=== PATIENT | female | born 1945 | race Caucasian/White ===

== ENCOUNTER 2017-02-04 11:24 | Day surgery (SDC) | payer BC ==
[~2017-02-04 11:24] MED LIST: RINGER'S SOLUTION,LACTATED 1,000 ML IV PRN
[2017-02-04] MEDS ORDERED: RINGER'S SOLUTION,LACTATED 1,000 ML IV ONE ×2 (11:57→12:15)
[2017-02-04] MEDS ORDERED: BUPIVACAINE HCL/EPINEPHRINE 50 ML VIAL IJ ONE ×2 (12:32)
[2017-02-04] MEDS ORDERED: RINGER'S SOLUTION,LACTATED 1,000 ML IV PRN (12:56)
[2017-02-04 14:32] VITALS: BP 138/65
--- NOTE | 2017-02-09 09:40 | OR ---
Operative Report - Dictated Report Narrative: OPERATIVE REPORT DATE OF OPERATION: 02/04/2017 PREOPERATIVE DIAGNOSIS: Unused buried infusion port POSTOPERATIVE DIAGNOSIS: Same OPERATION: Removal of left subclavian vein buried infusion port SURGEON: Adore Del Real MD ANESTHESIA: MAC/local Kyle Abdul CRNA INDICATIONS FOR PROCEDURE: The patient is a 71-year-old female who had placement of a buried infusion port in May for chemotherapy. She has completed that and desires port removal. FINDINGS: Successful removal of the buried infusion port NARRATIVE OF PROCEDURE: The patient was identified preoperatively, the surgical site was marked, and prior to the administration of MAC anesthetic a multidisciplinary timeout was observed. The patient was placed supine and the left chest prepped with Betadine solution and the area around the port isolated with 4 sterile towels. The remainder the patient was covered with a sterile disposable drape. The area was infiltrated with 0.5% Marcaine with epinephrine. The previous port pocket incision was opened sharply down to the fibrous capsule around the port. The port was then freed and removed intact with the tubing. The area was hemostatic. The port pocket was then closed with interrupted sutures of 3-0 chromic. The skin was secured with a running subcuticular suture of 4-0 Vicryl. The operative site was washed and dried. A dressing of Dermabond and Mepilex border was applied. The operative procedure was terminated at this point. The patient tolerated the procedure well without complication. All counts were correct. There was no measurable blood loss. No specimen was submitted. The patient was transferred back to the ambulatory surgery area awake and in stable condition. Reviewed and electronically signed
== END 2017-02-04 11:25 | disposition home or self-care (01) ==
LOC: AMB 11:24
PROVIDERS: ATTEND Surgery
PROC: 0JPT3XZ Removal of Tunneled Vascular Access Device from Trunk Subcutaneous Tissue and Fascia, Percutaneous Approach (ICD-10-PCS; principal; 2017-02-04 11:30)
DX: Z45.2 Encounter for adjustment and management of vascular access device (principal); J45.30 Mild persistent asthma, uncomplicated; Z68.38 Body mass index [BMI] 38.0-38.9, adult

== ENCOUNTER 2019-12-21 06:24 | Inpatient (IN) ==
[~2019-12-21 06:24] MED LIST changes: +MORPHINE SULFATE 15 MG TABLET.SA PO PRN; -RINGER'S SOLUTION,LACTATED 1,000 ML IV PRN; +ROPIVACAINE HCL/PF 100 MG, EPINEPHrine 0.2 MG, KETOROLAC TROMETHAMINE 30 MG in NORMAL S... IJ PRN; +TRANEXAMIC ACID 1,000 MG in NORMAL SALINE 100 ML IV PRN; +ceFAZolin SODIUM 1 GM VIAL IV PRN
[2019-12-21] MEDS ORDERED: ISOPROPYL ALCOHOL 480 APPL BTL MC ONE (06:31)
[2019-12-21] MEDS ORDERED: ceFAZolin SODIUM 1 GM VIAL ONE (06:31)
[2019-12-21] MEDS: RINGER'S SOLUTION,LACTATED 1,000 ML IV PRN ×3 (07:14→10:05)
--- NOTE | 2019-12-21 07:36 | ANES ---
Anesthesia Pre Procedure Eval Vitals/Labs: Last Vital Signs Temp 36.8 C 12/21/19 06:37 Pulse 66 12/21/19 06:37 Resp 18 12/21/19 06:37 BP 138/60 12/21/19 06:37 Pulse Ox 96 12/21/19 06:37 HOME MEDICATIONS Nebivolol HCl [Bystolic] 5 mg PO DAILY 05/29/16 [Last Taken 12/21/19 05:30] Cyanocobalamin [Vitamin B-12] 1,000 mcg PO DAILY 02/01/17 [Last Taken 08/04/17] Gabapentin [Neurontin] 100 mg PO BID 07/22/17 [Last Taken 08/04/17] cholecalciferol (vitamin D3) 50 mcg (2,000 unit) capsule 2,000 unit PO DAILY 04/14/19 [Last Taken Unknown] amlodipine 5 mg tablet 2.5 mg PO TID #14 tab 11/10/19 [Last Taken 12/21/19 05:30] ezetimibe 10 mg tablet 10 mg PO DAILY tab 11/10/19 [Last Taken Unknown] levothyroxine 50 mcg tablet 50 mcg PO DAILY tab 11/10/19 [Last Taken 12/21/19 05:30] Allergies/Adverse Reactions: Allergies Allergy/AdvReac Type Severity Reaction Status Date / Time ragweed pollen Allergy asthma Verified 12/21/19 06:48 symptoms epinephrine AdvReac Intermediate HTN Verified 12/21/19 06:48 NSAIDS (Non-Steroidal AdvReac Intermediate Other Verified 12/21/19 06:48 Anti-Inflamma calamine AdvReac Mild RASH Verified 12/21/19 06:48 codeine AdvReac Mild WEAK, Verified 12/21/19 06:48 PALE, NAUSEA doxycycline AdvReac Mild RASH, Verified 12/21/19 06:48 VOMITING imipramine AdvReac Mild RASH, Verified 12/21/19 06:48 SWELLING lisinopril AdvReac Mild SHORT OF Verified 12/21/19 06:48 BREATH losartan AdvReac Mild STOMACH Verified 12/21/19 06:48 PAIN naproxen [From Naprosyn] AdvReac Mild Itching Verified 12/21/19 06:48 - Planned Procedure Planned Procedure: left total knee arthroplasty Medication List Reviewed:: Yes Allergies Verified: Yes Medical History (Last Reviewed 12/21/19 @ 07:33 by Blaise Dumont CRNA) Asthma, mild persistent Onset Date: Unknown Back pain Onset Date: 2004 Thoracic back pain radiating around right ribs [facility] Feb 15 2012 4:20PM: Thoracic spine pain, previous MRI showed possible cystic formation Degenerative joint disease of knee Onset Date: 02/25/13 Iron deficiency anemia due to chronic blood loss Onset Date: Unknown Malignant neoplasm of sigmoid colon Onset Date: 03/2016 adenomcarcinoma Positive Lyme disease serology has been negative since Surgical History (Last Reviewed 12/21/19 @ 07:33 by Blaise Dumont CRNA) Colostomy in place Onset Date: 04/02/16 [facility]-end descending colostomy/Alexandra pouch Encounter for intravenous line placement Onset Date: 06/18/16 insertion of buried infusion port- [facility]-left subclavian removal -[facility]- 02/04/17 History of arthroscopic surgery of shoulder Onset Date: 1999 Fractured humerus, adhesive capsulitis History of section Onset Date: 06/04/82 History of cholecystectomy Onset Date: 2005 History of elbow surgery Onset Date: 1988 Right tennis elbow History of exploratory laparotomy Onset Date: 04/02/16 [facility]-ischemic portion of the colon, a mass with perforation. Sigmoid resection with colostomy History of hysterectomy Onset Date: 1993 [facility] WITH [facility] S [facility] History of sinus surgery Onset Date: 1997 Thornwaldt cyst History of surgery on right wrist Onset Date: 2000 Fracture radias /External fixation and pinning History of surgery on wrist Onset Date: Unknown Family History (Last Reviewed 12/21/19 @ 07:33 by Blaise Dumont CRNA) Father , age 58 Cancer prostate Mother , age 72 Multiple myeloma with amyloidosis Chronic mental illness Brother , age 72 Cancer bladder Aunt Rheumatoid arthritis - Family Anesthesia History Family History:: no untoward family reactions to anesthesia, no familial bleeding tendencies, no family history of clotting disorders, no family history of premature - Airway/Neck/Teeth Within Normal Limits:: Yes Neck Exam: full range of motion Mallampatti Score: 3 Thyromental (T-M) distance: > 6 cm Mandibulo Hyoid distance: > 3 cm - Respiratory Respiratory History: asthma Respiratory Physical: lungs clear Smoking Status: Never smoker Sleep Apnea currently treated: No Sleep Apnea by current assessment: No - Cardiovascular Cardiac History: hypertension Tolerate Activity: Fair Heart Sounds: S1 & S2, Regular - Gastrointestinal NPO since: 2399 - Anesthesia Assessment and Plan ASA Class: PS, III Anesthesia Type Plan: Block - adductor canal block for post op pain relief, Spinal
[2019-12-21] MEDS ORDERED: PROPOFOL VIAL IV ONE (07:42)
[2019-12-21] MEDS ORDERED: MIDAZOLAM HCL/PF 5 MG/ML VIAL ONE (07:42)
[2019-12-21] MEDS ORDERED: BUPIVACAINE HCL/EPINEPHRINE/PF 30 ML VIAL IJ ONE (07:42)
[2019-12-21] MEDS ORDERED: ZOLPIDEM TARTRATE 5 MG TABLET PO PRN (09:52)
[2019-12-21] MEDS ORDERED: diphenhydrAMINE HCL 50 MG/ML VIAL IV PRN (09:52)
[2019-12-21] MEDS ORDERED: MORPHINE SULFATE 4 MG/ML SYRG IV PRN (09:52)
[2019-12-21] MEDS ORDERED: ACETAMINOPHEN 500 MG TABLET PO PRN (09:52)
[2019-12-21] MEDS ORDERED: ONDANSETRON HCL/PF 2 MG/ML VIAL IV PRN (09:52)
[2019-12-21] MEDS ORDERED: MAG HYDROX/ALUMINUM HYD/SIMETH 30 ML UDC PO PRN (09:52)
[2019-12-21] MEDS ORDERED: MAGNESIUM HYDROXIDE 30 ML UDC PO PRN (09:52)
[2019-12-21] MEDS ORDERED: DEXTROSE 5%-LACTATED RINGERS 1,000 ML IV PRN ×2 (09:52→14:23)
--- NOTE | 2019-12-21 09:59 | OR ---
Operative Report - Dictated Report Narrative: Date: 12/21/2019 Preoperative diagnosis: Left knee degenerative joint disease. Postoperative diagnosis: Left knee degenerative joint disease. Procedure: Left total knee arthroplasty. Surgeon: Frank Torres M.D. Rn Orthopaedics: Remberto Hobson PA-C (provided and essential set of skilled, educated hands that assisted with transfer, positioning, prepping, draping, manipulation, retraction, placement of jigs, injection, insertion of implants, irrigation, closure wounds, and dressings all of which could not be performed by the available surgical crew) Anesthesia: Spinal with regional block and local periarticular joint injection. Complications: None Specimens: Bone. Estimated blood loss: Minimal. Tourniquet time: 85 Minutes at 300 millimeters of mercury. Retained implants: Depuy Attune size 6 narrow left lugged cemented posterior stabilized femoral component. Size 5 fixed-bearing cemented tibial platform. 6 by 5 millimeter posterior stabilized cross-linked tibial insert. 35 millimeter medialized patella button. Indications: Mrs. Howe is a 74-year-old female who has had longstanding left knee pain and arthrosis. This patient was followed in my clinic for period of time with significant complaints of left knee pain consistent with arthritic changes. She had failed conservative measures including, but not limited to, activity modification, passage of time, medications, and other conservative measures. Patient wished to proceed with surgical treatment. The risks, benefits, and alternatives were discussed in clinic. The risks of , blood clots, bleeding, infection, nerve/tendon blood vessel/ injury, malposition of components, intraoperative fracture, postoperative limited range of motion, persistent pain, failure of components, and need for additional procedures. Patient wished to proceed consent was obtained after answering all questions. Procedure: After marking the correct extremity on the floor, the patient was taken to the operating room. A timeout was performed. IV antibiotics consisting of Ancef were administered prior to the procedure. A regional followed by spinal anesthetic was induced by anesthesia, per my request, on the operative table with all bony prominences well-padded. Fenton catheter was placed, and a bump was placed under the operative side buttock. SCDs and ROBERTA hose were utilized on the nonoperative leg. A well-padded tourniquet was applied to the operative thigh. The operative leg was then pre-scrubbed with alcohol, prepped, and draped in a standard sterile fashion. After exsanguinating the extremity with an Esmarch bandage, the tourniquet was inflated. After marking out the anterior knee for standard incision centered over the patella, the skin was incised and dissected down to the joint retinaculum. The joint retinaculum was marked out as well as the horizontal axis of the patella, and a standard medial parapatellar arthrotomy was then made. The most proximal aspect of the quadriceps tendon and the patella tendon insertion were protected from release. A partial synovectomy was performed as well as a resection of the infrapatellar fat pad. The distal femoral fat pad proximal to the trochlea was also resected using cautery. The soft tissues were elevated off the medial aspect of the proximal tibia using a Cordova elevator ensuring that we did not transect the medial collateral ligament. Upon initial evaluation range of motion was approximately 0 degrees to 120 degrees of flexion. There were signs of advanced arthrosis in the medial and patellofemoral greater than lateral joint spaces. There were large marginal osteophytes which were removed with a rongeur. The knee was hyperflexed and the patella was tucked laterally. Protecting the surrounding soft tissues with Homans, an entry drill was placed down the femoral canal using Whitesides line for guidance into the entry point. The intramedullary femoral alignment izzy was utilized in order to cut the distal femur in 5 degrees of valgus resecting 10 millimeters of bone. Next the distal femur was sized to a size 6. A posterior referencing guide was utilized to place the distal femoral cutting block in 3 degrees of external rotation. This was pinned into place. The rotation was confirmed both visually and based on anatomic landmarks. The 4 in 1 cutting jig of the appropriate size was utilized in order to make all bony cuts. The earlene wing was used to ensure no notching. Retractors were utilized in order to protect surrounding soft tissues. This cut did not result in any excessive notching. We then cut the box centered over the distal femur. This allowed for resection of the anterior and posterior cruciate ligaments. I then turned my attention to the preparation of the tibia. Using an extra medullary tibial alignment izzy, 4 millimeters of bone was resected off the medial articular surface. This was made perpendicular to the mechanical axis of the joint with the alignment izzy centered over the ankle mortise. The alignment izzy was checked and was noted to be parallel to the m echanical axis, centered over the medial one third of the tibial tubercle, paralleling the anterior surface of the tibia. We then turned our attention to the remaining meniscus and soft tissues. These were removed while protecting the surrounding ligaments and soft tissues. The marginal osteophytes off the anterior, posterior, medial, lateral aspects of the femur and tibia were removed. The tibia was sized out to a size 5. Next the tibia was drilled and punched in an externally rotated position. Next the trial femur and a series of tibial inserts were utilized in order to allow for full extension and maximal flexion. It was found that a 5 millimeter insert gave the best range of motion and stability at multiple flexion points as well as at full extension there was less than 2 mm of gapping both medially and laterally. There is minimal anterior translation with the knee at 90 degrees of flexion and no signs of being able to dislocate the knee. The patella was then prepared. The initial thickness was 21 millimeters. This was reamed down to 12 millimeters parallel to the anterior surface of the patella. It was sized out to a size 35 medialized patella button. This was the n drilled and trialed. Without any medial restraint the patella tracked appropriately and did not sublux or dislocate. At this point, it was felt these were the appropriate sized implants, and all t rials were removed. The standard periarticular joint injection consisting of ropivacaine, Toradol, and epinephrine were injected into the periarticular joint tissues. The bony surfaces were thoroughly irrigated with a pulsatile-suction saline irrigation device. A bone plug from the prior resected anterior chamfer cut was placed into the drill hole at the distal femur. The bony surfaces were then dried in preparation for placement of the implants. The cement was vacuum mixed per the online retailer's instructions. The cement was placed on the dry bony surfaces and posterior aspect of the implants. The implants were impacted into place, removing all extruded cement. At this point anesthesia administered tranexamic acid per protocol intravenously. The knee was placed in extension with axial loading with the trial insert while the cement cured. Once the cement cured, all remaining extruded cement was removed. The knee was placed through a range of motion with the trial insert to ensure appropriate range of motion and stability. Final range of motion was approximately 0 to 120 degrees. The knee was again thoroughly irrigated with pulsatile saline lavage. The final polyethylene insert was then impacted into place ensuring no retained soft tissues. The remaining periarticular joint injection was injected. A medium Hemovac drain was placed exiting superior laterally. The knee was then placed over a triangle and the arthrotomy was closed with interrupted #1 Vicryl after thoroughly irrigating the joint. The deep and subcutaneous tissues were closed with interrupted 0 and 3-0 Vicryl respectively. Skin was closed with a running subcutaneous 3-0 Monocryl and Prineo Dermabond dressing. 4 x 4's, Sof-Rol, and a full leg Monty wrap were applied. All sponge, needle, blade, and instrument counts were correct prior to closing the wounds. Postoperative condition: The patient was awoken and transferred to the postanesthesia care unit in stable condition. Plan is to be admitted to the inpatient medical/surgical floor postoperatively for 24 hours of IV antibiotics, physical therapy, occupational therapy, and medical comanagement. Patient will be weightbearing as tolerated with range of motion as tolerated. DVT prophylaxis will be with SCDs, ROBERTA hose, and pharmacological anticoagulation. Anticipated hospital stay is approximately 1-3 days.
--- NOTE | 2019-12-21 10:22 | ANES ---
Post Anesthesia Discharge - Transfer of Care Transfer of Care handoff given to nurse: Yes - Discharge from PACU Discharge from PACU when meets criteria: Yes - Anesthesia Post Op Note Anesthesia Post Op Note: Awake and comfortable in the lower extremities. Began to complain of back and left shoulder pain. She was at first thinking it may be acid reflux which seems reasonable considering her previous supine position. Since the pain was not completely relieved on elevation of the head of the bed, an EKG and consult was ordered.
--- NOTE | 2019-12-21 10:23 | ANES ---
Anesthesia Procedure Note Procedure Note: ANESTHESIA PROCEDURE NOTE Date of Procedure: 12/21/2019 Time of procedure: 8 AM. Performed by: CHAO Isaacs CRNA, MSN [employer] Consultant: Anna Porter RN. Preprocedure diagnosis: Post left total knee arthroplasty pain. Post procedure diagnosis: Same. Procedure: Left adductor Canal Block. Indications: Post left total knee arthroplasty pain relief. Findings: See below. Details of the procedure: The patient was brought to OR #4 and placed in supine position. The patient's left femoral area to the knee was prepped with chlorhexidine and using ultrasound guidance the left femoral artery and nerve was identified and then followed to the level of the adductor canal. Lidocaine 1% was infiltrated to the skin of the intended injection site. Under ultrasound guidance the saphenous nerve was approached with visualization of a 4 inch shielded block needle. Once saphenous nerve was identified with proximity to the needle tip, the saphenous nerve was surrounded with 25 mL bupivacaine 0.25% with 1-200,000 epinephrine. Please see radiology/ultrasound report for details and retained images of the procedure. EBL: 0 Fluids: N/A. Specimen: N/A. Post procedure condition: The patient tolerated the procedure well. No complications were noted. Thank you for this consultation. Blaise Dumont CRNA, ARNP, MSN
[2019-12-21] MEDS ORDERED: fentaNYL CITRATE/PF 50 MCG/ML AMPUL ONE (10:24)
[2019-12-21] MEDS ORDERED: NITROGLYCERIN 0.4 MG/TAB BTL SL ONE (10:25)
[2019-12-21 10:53] LABS: Hematocrit 38.6 % (37.0-47.0); Hemoglobin 12.1 gm/dL (12.5-16.0); Mean Cell Volume 88.5 fl (78-100); Mean Corpuscular Hemoglobin 27.8 pg (27-31); Mean Corpuscular Hgb Conc 31.3 g/dl (32-36); Mean Platelet Volume 9.2 fl (8-12.5); Neutrophil # 4.4 K/mm3 (1.3-6.0); Neutrophil % 59.5 % (42-75.0); Platelet Count 239 K/mm3 (150-450); Red Blood Count 4.36 M/mm3 (4.2-5.4); Red Cell Distribution Width 13.9 % (11.5-14.0); White Blood Count 7.5 K/mm3 (4.0-10.5)
[2019-12-21 11:13] LABS: ALT 29 U/L (19-67); AST 31 U/L (0-48); Albumin * 2.9 gm/dl (3.4-5.0); Alkaline Phosphatase * 59 U/L (50-170); Anion Gap 11.2 mmol/L (6.8-13.8); BUN/Creatinine Ratio 17.1 (9.0-21.6); Bilirubin, Total 0.3 mg/dL (0.0-1.1); Blood Urea Nitrogen 20 mg/dL (3-23); Ca. Corrected For Albumin 9.4 mg/dL (8.4-10.2); Calcium * 8.8 mg/dL (7.9-10.9); Carbon Dioxide 27.8 mmol/L (24-32.6); Chloride 107 mmol/L (97-106); Glucose * 144 mg/dL (70-110); Sodium 142 mmol/L (132-142); Total Protein 6.1 gm/dL (6.2-8.2); Troponin I Less than 0.017 ng/mL (0.00-0.10)
--- NOTE | 2019-12-21 11:15 | ANES ---
Post Anesthesia Assessment - Vital Signs Vitals: Last Vital Signs Temp 36.4 C 12/21/19 10:40 Pulse 67 12/21/19 10:40 Resp 12 12/21/19 10:40 BP 121/40 12/21/19 10:40 Pulse Ox 99 12/21/19 10:40 Airway Patency: Normal - Mental Status Level Of Consciousness: Awake, Alert, Appropriate - Pain Level Pain Score: 5 - N/V Assessment Nausea/Vomiting Presence: None Dehydration:: No - Additional Notes Comments:: Complaints of back and shoulder pain are better but not completely resolved. EKG appears to be no change from preop EKG, enzymes ordered and Dr. Whaley is following. She does not appear to be in distress and is voicing no complaints of surgical site.
[2019-12-21] MEDS: ceFAZolin SODIUM 1 GM in DEXTROSE 5 % IN WATER 100 ML IV SCH ×4 (11:34→17:01)
[2019-12-21] MEDS: oxyCODONE HCL/ACETAMINOPHEN 1 TAB TABLET PO PRN ×3 (11:46→21:14)
[2019-12-21] MEDS ORDERED: MORPHINE SULFATE 2 MG/ML DISP.SYRIN IV PRN (13:30)
[2019-12-21] MEDS: amLODIPine BESYLATE 5 MG TABLET PO SCH ×2 (14:11→20:59)
--- NOTE | 2019-12-21 19:37 | HP ---
Chief Complaint - Chief Complaint Date of Service: 12/21/19 Time of Service: 11:05 Chief Complaint: Postoperative chest pain radiating through to the back rated as an 8/10 initially. She is status post left total knee arthroplasty. History of Present Illness: Mrs. Villela is a 74-year-old female patient of Dr. Torres who underwent left total knee arthroplasty today. As I understand it, this was an outpatient total knee arthroplasty and she was planning to going home after being recovered. While in the recovery room she developed left sided upper chest pain that radiated through to the back. Her blood pressure was in the 1 11-1 24 systolic range and in the upper 40s diastolic upon my arrival. She was stable and conversant. 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 We kept her informed of her vital signs and her status and she seemed to adapt quite well. The initial troponin came back normal. She did not have any dyspnea, diaphoresis, nausea, or lightheadedness with this chest discomfort. It gradually resolved without intervention except that she did get a little fentanyl IV from anesthesia. I did not give her any nitrates. By the time she got to [facility] floor she was down to a 5 and when I went to see her again later around 2:00 in the afternoon he was completely pain- free and feeling quite good. She has had no other postoperative complications. Vital signs remained stable. The preop electrocardiogram shows interventricular conduction delay but she has a history of a left bundle branch block and I suspect that is what we are seeing here. Medical History (Last Reviewed 12/21/19 @ 07:33 by Blaise Dumont CRNA) Asthma, mild persistent Onset Date: Unknown Back pain Onset Date: 2004 Thoracic back pain radiating around right ribs [facility] Feb 15 2012 4:20PM: Thoracic spine pain, previous MRI showed possible cystic formation Degenerative joint disease of knee Onset Date: 02/25/13 Iron deficiency anemia due to chronic blood loss Onset Date: Unknown Malignant neoplasm of sigmoid colon Onset Date: 03/2016 adenomcarcinoma Positive Lyme disease serology has been negative since Surgical History: Surgical History (Last Reviewed 12/21/19 @ 07:33 by Blaise Dumont CRNA) Colostomy in place Onset Date: 04/02/16 [facility]-end descending colostomy/Alexandra pouch Encounter for intravenous line placement Onset Date: 06/18/16 insertion of buried infusion port- Bagan-left subclavian removal -Bagan- 02/04/17 History of arthroscopic surgery of shoulder Onset Date: 1999 Fractured humerus, adhesive capsulitis History of section Onset Date: 06/04/82 History of cholecystectomy Onset Date: 2005 History of elbow surgery Onset Date: 1988 Right tennis elbow History of exploratory laparotomy Onset Date: 04/02/16 [facility]-ischemic portion of the colon, a mass with perforation. Sigmoid resection with colostomy History of hysterectomy Onset Date: 1993 [facility] WITH LUIS S & O History of sinus surgery Onset Date: 1997 Thornwaldt cyst History of surgery on right wrist Onset Date: 2000 Fracture radias /External fixation and pinning History of surgery on wrist Onset Date: Unknown Family History: Family History (Last Reviewed 12/21/19 @ 07:33 by Blaise Dumont CRNA) Father , age 58 Cancer prostate Mother , age 72 Multiple myeloma with amyloidosis Chronic mental illness Brother , age 72 Cancer bladder Aunt Rheumatoid arthritis Social History: (Last Updated 12/14/19 @ 11:12 by SUSAN Bean) Social History: Marital status: household members: spouse current occupational status: retired 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 Abdominal: Present: No Symptoms Reported Genitourinary: Present: No Symptoms Reported Musculoskeletal: Present: No Symptoms Reported, Other - I suspect the chest pain and back pain are musculoskeletal rather than cardiac. Neurological: Present: No Symptoms Reported Skin: Present: No Symptoms Reported Endocrine: Present: No Symptoms Reported Immunizations: IMMUNIZATION HX Immunizations Up to Date Yes History of Influenza Vaccine No Hx Pneumococcal Vaccination Yes Allergies/Adverse Reactions: Allergies Allergy/AdvReac Type Severity Reaction Status Date / Time ragweed pollen Allergy asthma Verified 12/21/19 06:48 symptoms epinephrine AdvReac Intermediate HTN Verified 12/21/19 06:48 NSAIDS (Non-Steroidal AdvReac Intermediate Other Verified 12/21/19 06:48 Anti-Inflamma calamine AdvReac Mild RASH Verified 12/21/19 06:48 codeine AdvReac Mild WEAK, Verified 12/21/19 06:48 PALE, NAUSEA doxycycline AdvReac Mild RASH, Verified 12/21/19 06:48 VOMITING imipramine AdvReac Mild RASH, Verified 12/21/19 06:48 SWELLING lisinopril AdvReac Mild SHORT OF Verified 12/21/19 06:48 BREATH losartan AdvReac Mild STOMACH Verified 12/21/19 06:48 PAIN naproxen [From Naprosyn] AdvReac Mild Itching Verified 12/21/19 06:48 Home Medications: HOME MEDICATIONS Nebivolol HCl [Bystolic] 5 mg PO DAILY 05/29/16 [Last Taken 12/21/19 05:30] Cyanocobalamin [Vitamin B-12] 1,000 mcg PO DAILY 02/01/17 [Last Taken 08/04/17] Gabapentin [Neurontin] 100 mg PO BID 07/22/17 [Last Taken 08/04/17] cholecalciferol (vitamin D3) 50 mcg (2,000 unit) capsule 2,000 unit PO DAILY 04/14/19 [Last Taken Unknown] amlodipine 5 mg tablet 2.5 mg PO TID #14 tab 11/10/19 [Last Taken 12/21/19 05:30] ezetimibe 10 mg tablet 10 mg PO DAILY tab 11/10/19 [Last Taken Unknown] levothyroxine 50 mcg tablet 50 mcg PO DAILY tab 11/10/19 [Last Taken 12/21/19 05:30] Exam - Exam Vital Signs: Vital Signs - Last Taken Temp 36.4 C 12/21/19 16:37 Pulse 63 12/21/19 16:37 Resp 16 12/21/19 13:37 BP 130/72 12/21/19 16:37 Pulse Ox 100 12/21/19 16:37 Constitutional: Present: Alert, Oriented x3, Cooperative, Well developed, Well nourished, No distress ENT Exam: Present: normal ENT inspection, hearing grossly normal, pharynx normal, TMs normal Eye Exam: bilateral eye: normal inspection, PERRL, EOMI Neck: Present: non-tender, full range of motion, supple, normal inspection Back Exam: Present: normal inspection, no CVA tenderness, no vertebral tende rness Breasts: Present: Exam deferred Respiratory: Present: chest non-tender, lungs clear, normal breath sounds Cardiovascular/Chest: Present: normal peripheral pulses, regular rate, rhythm, no chest tenderness Peripheral Pulses: carotid (R): 2+, carotid (L): 2+, radial (R): 2+, radial (L): 2+ Abdomen: Present: Normal bowel sounds, soft, nontender, nondistended, no rebound tenderness, no hepatospenomegaly, no masses /Rectal: Present: Exam deferred Extremity: Present: normal range of motion, non-tender, normal inspection, no pedal edema, no calf tenderness, normal capillary refill Skin Exam: Present: normal color, warm/dry, no cyanosis Lymphatic: Present: no adenopathy Neurologic: Present: counsel II-XII nml as tested, normal cerebellar test Appearance: Present: appropriate appearance, appropriate insight, neat Eye contact: Present: cooperative, good eye contact, normal speech Thoughts: Present: normal thought pattern, no apparent hallucination Diagnostic Studies: Abnormal Lab Results 12/21/19 12/21/19 Range/Units 10:35 10:35 Hgb 12.1 L (12.5-16.0) gm/dL MCHC 31.3 L (32-36) g/dl Eosinophils % 3.1 H (0.0-3.0) % Plasma Sodium 143 H (130-142) mmol/L Chloride 107 H (97-106) mmol/L Est GFR (Non-Af Amer) 48 L (60-130) mL/min Random Glucose 144 H (70-110) mg/dL Total Protein 6.1 L (6.2-8.2) gm/dL Albumin 2.9 L (3.4-5.0) gm/dl Laboratory Results WBC 7.5 K/mm3 (4.0-10.5) 12/21/19 10:35 RBC 4.36 M/mm3 (4.2-5.4) 12/21/19 10:35 Hgb 12.1 gm/dL (12.5-16.0) L 12/21/19 10:35 Hct 38.6 % (37.0-47.0) 12/21/19 10:35 MCV 88.5 fl (78-100) 12/21/19 10:35 MCH 27.8 pg (27-31) 12/21/19 10:35 MCHC 31.3 g/dl (32-36) L 12/21/19 10:35 RDW 13.9 % (11.5-14.0) 12/21/19 10:35 Plt Count 239 K/mm3 (150-450) 12/21/19 10:35 MPV 9.2 fl (8-12.5) 12/21/19 10:35 Immature Gran % (Auto) 0.40 % (0.001-0.429) 12/21/19 10:35 Immature Gran # (Auto) 0.03 K/mm3 (0.000-0.0310) 12/21/19 10:35 Neutrophils % 59.5 % (42-75.0) 12/21/19 10:35 Lymphocytes % 28.6 % (20-51) 12/21/19 10:35 Monocytes % 7.9 % (0.0-9) 12/21/19 10:35 Eosinophils % 3.1 % (0.0-3.0) H 12/21/19 10:35 Basophils % 0.5 % (0.0-1.0) 12/21/19 10:35 Nucleated RBC % 0.0 k/mm3 (0-1) 12/21/19 10:35 Neutrophils # 4.4 K/mm3 (1.3-6.0) 12/21/19 10:35 Lymphocytes # 2.13 k/mm3 (1.5-3.5) 12/21/19 10:35 Monocytes # 0.6 k/mm3 (0.0-1.0) 12/21/19 10:35 Eosinophils # 0.2 k/mm3 (0.0-0.7) 12/21/19 10:35 Absolute Basophils 0.0 k/mm3 (0.0-0.1) 12/21/19 10:35 Sodium 142 mmol/L (132-142) 12/21/19 10:35 Plasma Sodium 143 mmol/L (130-142) H 12/21/19 10:35 Potassium 4.0 mmol/L (3.4-4.6) 12/21/19 10:35 Chloride 107 mmol/L (97-106) H 12/21/19 10:35 Carbon Dioxide 27.8 mmol/L (24-32.6) 12/21/19 10:35 Anion Gap 11.2 mmol/L (6.8-13.8) 12/21/19 10:35 BUN 20 mg/dL (3-23) 12/21/19 10:35 Creatinine 1.17 mg/dL (0.4-1.4) 12/21/19 10:35 Est GFR (Non-Af Amer) 48 mL/min (60-130) L 12/21/19 10:35 BUN/Creatinine Ratio 17.1 (9.0-21.6) 12/21/19 10:35 Random Glucose 144 mg/dL (70-110) H 12/21/19 10:35 Calcium 8.8 mg/dL (7.9-10.9) 12/21/19 10:35 Calcium Adj for Albumin 9.4 mg/dL (8.4-10.2) 12/21/19 10:35 Total Bilirubin 0.3 mg/dL (0.0-1.1) 12/21/19 10:35 AST 31 U/L (0-48) 12/21/19 10:35 ALT 29 U/L (19-67) 12/21/19 10:35 Alkaline Phosphatase 59 U/L (50-170) 12/21/19 10:35 Troponin I Less than 0.017 ng/mL (0.00-0.10) 12/21/19 10:35 Total Protein 6.1 gm/dL (6.2-8.2) L 12/21/19 10:35 Albumin 2.9 gm/dl (3.4-5.0) L 12/21/19 10:35 Assessment/Plan - Narrative Narrative: 1. Monitor through the night with cardiac monitoring and of vital signs. 2. Dr. Torres to manage postoperative orders and activity orders and pain meds. 3. If she remained stable and chest pain-free through the night then she can probably be discharged tomorrow morning. 4. Morning lab ordered.
[2019-12-21] MEDS: SENNOSIDES/DOCUSATE SODIUM 1 TAB TABLET PO SCH ×2 (21:00→21:06)
[2019-12-21] MEDS: GABAPENTIN 100 MG CAPSULE PO SCH (21:00)
[2019-12-22] MEDS: ceFAZolin SODIUM 1 GM in DEXTROSE 5 % IN WATER 100 ML IV SCH ×2 (00:38)
[2019-12-22] MEDS: oxyCODONE HCL/ACETAMINOPHEN 1 TAB TABLET PO PRN ×2 (01:23→05:46)
[2019-12-22 06:48] LABS: Hemoglobin 11.3 gm/dL (12.5-16.0); Mean Cell Volume 87.4 fl (78-100); Mean Corpuscular Hemoglobin 27.4 pg (27-31); Mean Corpuscular Hgb Conc 31.4 g/dl (32-36); Mean Platelet Volume 9.3 fl (8-12.5); Neutrophil % 79.9 % (42-75.0); Platelet Count 220 K/mm3 (150-450); Red Blood Count 4.12 M/mm3 (4.2-5.4); Red Cell Distribution Width 13.7 % (11.5-14.0); White Blood Count 7.5 K/mm3 (4.0-10.5)
[2019-12-22] MEDS ORDERED: LEVOTHYROXINE SODIUM 50 MCG TABLET PO SCH (07:00)
[2019-12-22 07:04] LABS: ALT 604 U/L (19-67); AST 549 U/L (0-48); Albumin * 2.7 gm/dl (3.4-5.0); Alkaline Phosphatase * 129 U/L (50-170); Anion Gap 7.5 mmol/L (6.8-13.8); BUN/Creatinine Ratio 18.2 (9.0-21.6); Bilirubin, Total 0.7 mg/dL (0.0-1.1); Blood Urea Nitrogen 20 mg/dL (3-23); Ca. Corrected For Albumin 9.2 mg/dL (8.4-10.2); Calcium * 8.5 mg/dL (7.9-10.9); Carbon Dioxide 30.8 mmol/L (24-32.6); Chloride 105 mmol/L (97-106); Glucose * 112 mg/dL (70-110); Potassium 4.3 mmol/L (3.4-4.6); Sodium 139 mmol/L (132-142); Total Protein 5.8 gm/dL (6.2-8.2); Troponin I Less than 0.017 ng/mL (0.00-0.10)
[2019-12-22] MEDS: oxyCODONE HCL 5 MG TABLET PO PRN ×2 (08:11→12:35)
[2019-12-22] MEDS: amLODIPine BESYLATE 5 MG TABLET PO SCH ×2 (08:12→12:35)
[2019-12-22] MEDS: GABAPENTIN 100 MG CAPSULE PO SCH (08:12)
[2019-12-22] MEDS ORDERED: ENOXAPARIN SODIUM 40 MG/0.4 ML SYRG SC SCH (08:52)
[2019-12-22] MEDS ORDERED: CHOLECALCIFEROL 1,000 UNIT CAPSULE PO SCH (09:00)
[2019-12-22] MEDS ORDERED: CYANOCOBALAMIN 1,000 MCG TABLET PO SCH (09:00)
[2019-12-22] MEDS ORDERED: EZETIMIBE 10 MG TABLET PO SCH (09:00)
[2019-12-22 10:46] LABS: Albumin * 2.8 gm/dl (3.4-5.0); Bilirubin Direct 0.2 mg/dL (0.0-0.3); Bilirubin, Total 0.7 mg/dL (0.0-1.1); Bilirubin,Indirect 0.5 mg/dL (0.1-0.7); Total Protein 5.4 gm/dL (6.2-8.2)
--- NOTE | 2019-12-22 12:16 | DS ---
(1) Status post total left knee replacement Problem: Acute (2) Hyperlipemia Problem: Chronic (3) Hypertension Problem: Chronic (4) Left bundle branch block Problem: Chronic (5) Dizzy spells Problem: Chronic (6) Fatigue Problem: Chronic (7) Peripheral neuropathy Problem: Chronic (8) Chest pain Problem: Acute (9) Elevated liver enzymes Problem: Acute Date of Discharge:: 12/22/19 Hospital Course: Mrs. Howe was admitted to the floor after undergoing left total knee arthroplasty. Tolerated this well. She did report postoperative left chest pain which resolved spontaneously however a cardiac work-up showed no acute events. She was admitted to the floor postoperatively for 24 hours of IV antibiotics, pain control, medical comanagement, and occupational and physical therapy. OT and PT were consulted to assist with activities of daily living and ambulation. Was made weightbearing as tolerated with range of motion as tolerated. Pain was initially controlled with IV regimen. This was transitioned to oral once tolerating a by mouth intake. Was resumed on home diet and medications. A Fenton catheter was inserted in the operating room which was discontinued by postoperative day 1. A drain was placed intraoperatively into the knee which was discontinued on postoperative day 1. Lovenox, SCDs, and ROBERTA hose were utilized for DVT prophylaxis. Vital signs remained stable to the hospital course. Labs were obtained which showed a final hemoglobin of 11.3 grams. Pre-op hemoglobin was 12.2. She was asymptomic and thus the acute blood loss anemia will be monitored and treated clinically. cMP was reviewed and was stable with regards to everything except for elevated liver enzymes. Her Tylenol was removed from her breakthrough medications in order to address this. She is instructed to follow-up with her primary care physician regards to this.. Physical examination throughout the hospital course showed an extremity that had sensation that was intact to light touch, palpable pulses, a benign wound, motor intact to the toes, ankle, and knee. Knee range of motion was approximately 5 degrees to 40 degrees. Once an oral pain regimen was tolerated and physical therapy goals were met, it was felt that they were stable for discharge to home. Instructions: Continue with weightbearing as tolerated and range of motion as tolerated. It is okay to shower and get the wound wet as long as there is no drainage from the wound. Do not bathe or soak the wound. If there is any drainage from the wound keep the wound clean and dry and cover with dry gauze and tape. Change every 2- 3 days as needed if there is any drainage. Cover wound while showering if there is any drainage. Continue with physical therapy. Resume home diet. Report any fever over 101.5 Fahrenheit, uncontrolled pain, increased drainage, foul odor of drainage, new or increased calf pain or shortness of breath, or any other significant complaints. A 325mg daily aspirin will be started after finishing anticoagulation if not allergic. Continue with ROBERTA hose on the operative extremity until instructed otherwise. No driving until instructed otherwise. Follow up in approximately 2-3 weeks. Procedures Performed: see notes below List Procedures: Left total knee arthroplasty Results and Findings: Lab Pending Results 12/21/19 10:35: WBC 7.5, RBC 4.36, Hgb 12.1 L, Hct 38.6, MCV 88.5, MCH 27.8, MCHC 31.3 L, RDW 13.9, Plt Count 239, MPV 9.2, Immature Gran % (Auto) 0.40, Immature Gran # (Auto) 0.03, Neutrophils % 59.5, Lymphocytes % 28.6, Monocytes % 7.9, Eosinophils % 3.1 H, Basophils % 0.5, Nucleated RBC % 0.0, Neutrophils # 4.4, Lymphocytes # 2.13, Monocytes # 0.6, Eosinophils # 0.2, Absolute Basophils 0.0 12/21/19 10:35: Sodium 142, Plasma Sodium 143 H, Potassium 4.0, Chloride 107 H, Carbon Dioxide 27.8, Anion Gap 11.2, BUN 20, Creatinine 1.17, Est GFR (Non-Af Amer) 48 L, BUN/Creatinine Ratio 17.1, Random Glucose 144 H, Calcium 8.8, Calcium Adj for Albumin 9.4, Total Bilirubin 0.3, AST 31, ALT 29, Alkaline Phosphatase 59, Troponin I Less than 0.017, Total Protein 6.1 L, Albumin 2.9 L 12/22/19 06:20: Sodium 139, Plasma Sodium 139, Potassium 4.3, Chloride 105, Carbon Dioxide 30.8, Anion Gap 7.5, BUN 20, Creatinine 1.10, Est GFR (Non-Af Amer) 52 L, BUN/Creatinine Ratio 18.2, Random Glucose 112 H, Calcium 8.5, Calcium Adj for Albumin 9.2, Total Bilirubin 0.7, AST 549 H, ALT 604 H, Alkaline Phosphatase 129, Troponin I Less than 0.017, Total Protein 5.8 L, Albumin 2.7 L 12/22/19 06:20: WBC 7.5, RBC 4.12 L, Hgb 11.3 L, Hct 36.0 L, MCV 87.4, MCH 27.4, MCHC 31.4 L, RDW 13.7, Plt Count 220, MPV 9.3, Immature Gran % (Auto) 0.30, Immature Gran # (Auto) 0.02, Neutrophils % 79.9 H, Lymphocytes % 7.9 L, Monocytes % 8.4, Eosinophils % 3.1 H, Basophils % 0.4, Nucleated RBC % 0.0, Neutrophils # 6.0, Lymphocytes # 0.59 L, Monocytes # 0.6, Eosinophils # 0.2, Absolute Basophils 0.0 12/22/19 06:20: Total Bilirubin 0.7, Direct Bilirubin 0.2, Indirect Bilirubin 0.5, AST 571 H, ALT 632 H, Alkaline Phosphatase 131, Total Protein 5.4 L, Albumin 2.8 L Discharge Location: Home Disposition: Home self-care Condition: Good Discharge Activity: Activity as tolerated, Weight bearing Discharge Diet: General/regular food Referrals: Jacqueline Oleary DO [Primary Care Provider] - Additional Patient Instructions (free text): Physical Therapy at [facility] outpatient rehab department on SaturdayDecember 22 at 9:45am. Follow up Orthopedic office appointment on SaturdayJanuary 11 at 9:45am. Prescriptions (Any new or edited meds): Enoxaparin Sodium [Lovenox] 40 mg SC Q24H #7 disp.syrin Transmission Status: Pending to [facility] oxyCODONE HCL [Oxycodone] 10 mg PO Q4H PRN #50 tab PRN Reason: Pain Transmission Status: Sent to [facility] Sennosides/Docusate Sodium [Senokot-S] 2 tab PO HS #60 tab Transmission Status: Pending to [facility] Complete Home Medications List: Complete Home Medication List: Nebivolol HCl [Bystolic] 5 mg PO DAILY 05/29/16 Cyanocobalamin [Vitamin B-12] 1,000 mcg PO DAILY 02/01/17 Gabapentin [Neurontin] 100 mg PO BID 07/22/17 cholecalciferol (vitamin D3) 50 mcg (2,000 unit) capsule 2,000 unit PO DAILY 04/14/19 amlodipine 5 mg tablet 2.5 mg PO TID #14 tab 11/10/19 ezetimibe 10 mg tablet 10 mg PO DAILY tab 11/10/19 levothyroxine 50 mcg tablet 50 mcg PO DAILY tab 11/10/19 Enoxaparin Sodium [Lovenox] 40 mg SC Q24H #7 disp.syrin 12/22/19 Sennosides/Docusate Sodium [Senokot-S] 2 tab PO HS #60 tab 12/22/19 oxyCODONE HCL [Oxycodone] 10 mg PO Q4H PRN #50 tab 12/22/19 Amb Orders for Discharge: PT Evaluation and Treatment* Facility: [facility], Location: Rehabilitation Services Forms: Patient Portal Registration
[2019-12-22 13:59] VITALS: BP 147/62
== END 2019-12-22 13:30 | disposition home or self-care (01) | DRG 470 ==
LOC: MS 06:24 → EDSTATUS 08:00
PROVIDERS: ADMIT Orthopaedic Surgery; ATTEND Orthopaedic Surgery
CPT/HCPCS: 36415; 73560; 80053; 80076; 84484; 85025; 93005; 97110; 97116; 97161; 97165; 97535